=== PATIENT | female | born 1935 | race Caucasian/White ===

== ENCOUNTER 2016-08-31 16:42 | Inpatient (IN) | payer OTHER ==
[~2016-08-31] VITALS: Ht 162.6 cm; Wt 83.6 kg
[~2016-08-31 16:42] MED LIST: ASPIR-TRIN325 M1 PO; ASPIRIN81 M1 PO; HYDROCODON-ACE1 EAC2; LOPRESSOR12.5 MG PO; LOVASTATIN40 MG PO; METOPROLOL SUCC25 MG PO; PLAVIX75 MG PO; PRILOSEC20 MG PO; PROTONIX40 MG PO; SIMVASTATIN TAB 20M; Vicodin,Norco 5/325 PO; ZESTRIL,PRINIVI10 M1; ZESTRIL,PRINIVI10 MG PO; Zestril,Prinivil PO; Zocor PO
[2016-08-31 17:48] LABS: ADD MIUA? YES; BILIRUBIN NEGATIVE; BLOOD LARGE; COLOR YELLOW ((YELLOW)); GLUCOSE (STRIP) NEGATIVE; KETONES NEGATIVE; LEUKOCYTES TRACE; NITRITE NEGATIVE; PROTEIN (STRIP) 30; SPECIFIC GRAVITY 1.018 (1.000-1.030); UROBILINOGEN 0.2 MG/DL (0.2-1.0)
[2016-08-31 17:56] LABS: BACTERIA NONE SEEN /HPF; EPITHELIAL CELLS 1+ /HPF; MUCUS TRACE /LPF; RED BLOOD CELLS TNTC /HPF (0-5); UCUL ADDED? NO
[2016-08-31 18:05] LABS: HEMATOCRIT 40.4 % (36.0-46.0); MCH 29.5 PG (29.0-34.0); MCHC 31.4 G/DL (30.0-36.0); MEAN PLAT.VOLUME 9.6 uM^3 (9.5-12.4); PLATELET COUNT 263 K/uL (156-360); RBC DIS.WIDTH-CV 13.7 % (11.8-14.6); RBC DIS.WIDTH-SD 47.3 % (39-53)
[2016-08-31 18:18] LABS: CHLORIDE 107 mEq/L (99-109); POTASSIUM 5.1 mEq/L (3.7-5.4); SODIUM 141 mEq/L (136-147)
[2016-08-31 18:20] LABS: GLUCOSE 118 mg/dL (70-99)
[2016-08-31 18:21] LABS: ANION GAP 10 MEQ/L (2-14)
[2016-08-31 18:23] LABS: GFR ESTIMATE (CALCULATED) 22 mL/min/
[2016-08-31 18:24] LABS: UREA NITROGEN (BUN) 31 mg/dL (9-23)
[2016-08-31] MEDS ORDERED: HYDROCODON-ACE1 EAC9 PO (21:14)
[2016-08-31] MEDS ORDERED: NITROGLYCERIN0.4 MG SL (21:15)
[2016-08-31] MEDS ORDERED: GABAPENTIN300 MG PO (21:15)
[2016-08-31] MEDS ORDERED: LISINOPRIL20 MG PO (21:15)
[2016-08-31] MEDS ORDERED: GLUCOPHAGE500 MG PO (21:16)
[2016-08-31] MEDS ORDERED: PRAVASTATIN SOD80 MG PO (21:16)
[2016-08-31] MEDS ORDERED: B-125000 MC1 SL (21:17)
[2016-09-01] VITALS: BP 125/59
[2016-09-01 00:16] LABS: POINT-OF-CARE METER ID UU14174225
[2016-09-01 04:08] VITALS: BP 117/61
[2016-09-01 05:42] LABS: POINT-OF-CARE METER ID UU14188625
[2016-09-01 06:27] LABS: HEMATOCRIT 34.6 % (36.0-46.0); MCH 29.6 PG (29.0-34.0); MCHC 30.9 G/DL (30.0-36.0); MCV 95.6 FL (83-99); MEAN PLAT.VOLUME 9.8 uM^3 (9.5-12.4); PLATELET COUNT 213 K/uL (156-360); RBC DIS.WIDTH-CV 13.7 % (11.8-14.6); RBC DIS.WIDTH-SD 48.2 % (39-53); RED BLOOD COUNT 3.62 M/uL (3.80-5.20); WHITE BLOOD COUNT 6.2 K/uL (4.1-10.2)
[2016-09-01 06:44] LABS: ALKALINE PHOSPHATASE 48 IU/L (3-129); ANION GAP 6 MEQ/L (2-14); CHLORIDE 110 MEQ/L (99-109); GFR ESTIMATE (CALCULATED) 26 mL/min/; GLUCOSE 93 mg/dL (70-99); POTASSIUM 5.1 MEQ/L (3.7-5.4); SAMPLE HEMOLYSIS CHECK 0; SAMPLE ICTERIC CHECK 0; SAMPLE LIPEMIA CHECK 0; SODIUM 140 MEQ/L (136-147); TOTAL BILIRUBIN 0.2 MG/DL (0.0-1.0); UREA NITROGEN (BUN) 29 mg/dL (9-23)
[2016-09-01 07:28] VITALS: BP 134/60
[2016-09-01 10:57] VITALS: BP 159/75
[2016-09-01 15:48] LABS: POINT-OF-CARE METER ID UU13113675
[2016-09-01 20:52] VITALS: BP 161/71
[2016-09-01 22:42] LABS: POINT-OF-CARE METER ID UU14188625
[2016-09-01 23:41] VITALS: BP 155/68
[2016-09-02 03:23] VITALS: BP 131/60
[2016-09-02 06:41] LABS: HEMATOCRIT 37.8 % (36.0-46.0); MCH 28.8 PG (29.0-34.0); MCHC 30.7 G/DL (30.0-36.0); MCV 93.8 FL (83-99); MEAN PLAT.VOLUME 10.1 uM^3 (9.5-12.4); PLATELET COUNT 247 K/uL (156-360); RBC DIS.WIDTH-CV 13.5 % (11.8-14.6); RBC DIS.WIDTH-SD 46.5 % (39-53); RED BLOOD COUNT 4.03 M/uL (3.80-5.20); WHITE BLOOD COUNT 6.3 K/uL (4.1-10.2)
[2016-09-02 07:31] VITALS: BP 172/72
[2016-09-02 07:37] LABS: ANION GAP 9 MEQ/L (2-14); CHLORIDE 110 MEQ/L (99-109); GLUCOSE 103 mg/dL (70-99); POTASSIUM 4.5 MEQ/L (3.7-5.4); SAMPLE HEMOLYSIS CHECK 0; SAMPLE ICTERIC CHECK 0; SAMPLE LIPEMIA CHECK 0; SODIUM 142 MEQ/L (136-147); UREA NITROGEN (BUN) 19 mg/dL (9-23)
[2016-09-02 07:41] LABS: GFR ESTIMATE (CALCULATED) 51 mL/min/
[2016-09-02] MEDS ORDERED: CEFDINIR300 MG PO (10:17)
== END 2016-09-02 11:20 | disposition home or self-care (01) | DRG 690 ==
LOC: EXP 16:42 → EME 16:42 → EDOF 21:12 → 5SOUTH 21:12
PROVIDERS: Internal Medicine; Physician Assistant Medical; Urology
DX: N13.6 Pyonephrosis (principal); N17.9 Acute kidney failure, unspecified; I25.10 Atherosclerotic heart disease of native coronary artery without angina pectoris; J44.9 Chronic obstructive pulmonary disease, unspecified; K21.9 Gastro-esophageal reflux disease without esophagitis; E78.00 Pure hypercholesterolemia, unspecified; E66.01 Morbid (severe) obesity due to excess calories; Z68.31 Body mass index [BMI] 31.0-31.9, adult; I25.2 Old myocardial infarction; E11.9 Type 2 diabetes mellitus without complications; Z95.5 Presence of coronary angioplasty implant and graft; Z79.4 Long term (current) use of insulin
CPT/HCPCS: 74000; 74176; 80048; 80053; 81003; 82365 90; 82948; 85027; 99281; 99285; C1769; C1876; J0696; J1644; J1815; J1885; J2270; J3010; J7030; J7050; S0028

== ENCOUNTER → 2017-04-16 | Outpatient (CLI) | payer OTHER ==
[~2017-04-16] MED LIST changes: +B-125000 MC1 SL; +CEFDINIR300 MG PO; +GABAPENTIN300 MG PO; +GLUCOPHAGE500 MG PO; +HYDROCODON-ACE1 EAC9 PO; +LISINOPRIL20 MG PO; +NITROGLYCERIN0.4 MG SL; +PRAVASTATIN SOD80 MG PO
== END | disposition home or self-care (01) ==
DX: R26.2 Difficulty in walking, not elsewhere classified (principal); M25.561 Pain in right knee; M25.661 Stiffness of right knee, not elsewhere classified; M62.81 Muscle weakness (generalized); Z74.1 Need for assistance with personal care; M17.11 Unilateral primary osteoarthritis, right knee
CPT/HCPCS: 97150 GO; 97161 GP; 97165 GO; 97530 GP; G8978 GP; G8979 GP; G8980 GP; G8987 GO; G8988 GO; G8989 GO

== ENCOUNTER 2017-05-06 22:15 | Inpatient (IN) | payer OTHER ==
[~2017-05-06] VITALS: Ht 162.6 cm; Wt 85.9 kg
[~2017-05-06 22:15] MED LIST changes: +ASPIR 8181 M1 PO; +NEURONTIN400 MG PO; +PRAVACHOL80 MG PO; +ZESTRIL20 MG PO
[2017-05-07 08:07] VITALS: BP 128/67
[2017-05-07 18:15] VITALS: BP 138/63
[2017-05-07 20:06] VITALS: BP 140/63
[2017-05-07 23:09] VITALS: BP 123/60
[2017-05-08 05:05] VITALS: BP 129/61
[2017-05-08 07:57] LABS: HEMATOCRIT 37.3 % (36.0-46.0); MCV 96.1 FL (83-99)
[2017-05-08 08:06] VITALS: BP 137/63
[2017-05-08 08:29] LABS: HEMOGLOBIN 11.5 G/DL (11.9-15.5)
[2017-05-08 08:38] LABS: CHLORIDE 105 MEQ/L (99-109); CREATININE 0.7 MG/DL (0.6-1.3); GFR ESTIMATE (CALCULATED) > 59 mL/min/; GLUCOSE 129 mg/dL (70-99); POTASSIUM 4.4 MEQ/L (3.7-5.4); SODIUM 137 MEQ/L (136-147); UREA NITROGEN (BUN) 12 mg/dL (9-23)
[2017-05-08 12:19] VITALS: BP 148/68
[2017-05-08 16:06] VITALS: BP 179/78
[2017-05-08 23:37] VITALS: BP 159/72
[2017-05-09 05:30] LABS: HEMATOCRIT 32.2 % (36.0-46.0); HEMOGLOBIN 10.4 G/DL (11.9-15.5)
[2017-05-09 07:50] VITALS: BP 161/70
[2017-05-09] MEDS ORDERED: HYDROMORPHONE HC2 MG PO (08:58)
[2017-05-09] MEDS ORDERED: ELIQUIS2.5 MG PO (08:58)
[2017-05-09] MEDS ORDERED: SENNA PLUS TAB1 EACH PO (08:58)
[2017-05-09] MEDS ORDERED: Salonpas 4% Patch TD (08:58)
== END 2017-05-09 16:47 | disposition home or self-care (01) | DRG 470 ==
LOC: ENRESERV 22:15 → 3EAST 05-07 06:39 → 2SOUTH 05-07 06:39 → ENRESERV 05-07 15:30 → 3EAST 05-07 17:41
PROVIDERS: Orthopaedic Surgery
PROC: 0SRC0J9 Replacement of Right Knee Joint with Synthetic Substitute, Cemented, Open Approach (ICD-10-PCS; principal; 2017-05-07)
DX: M17.11 Unilateral primary osteoarthritis, right knee (principal); I10 Essential (primary) hypertension; Z68.33 Body mass index [BMI] 33.0-33.9, adult; E78.00 Pure hypercholesterolemia, unspecified; Z95.5 Presence of coronary angioplasty implant and graft
CPT/HCPCS: 36415; 80048; 81003; 82948; 85014; 85018; 85025; 85610 GA; 86850; 86900; 86901; 87641; 94799; C1713; J0131; J0690; J1885; J2250; J2405; J7050; J7120

== ENCOUNTER 2017-05-13 11:24 | Emergency (ER) | payer OTHER ==
[~2017-05-13] VITALS: Ht 162.6 cm; Wt 91.8 kg
[~2017-05-13 11:24] MED LIST changes: +ELIQUIS2.5 MG PO; +HYDROMORPHONE HC2 MG PO; +SENNA PLUS TAB1 EACH PO; +Salonpas 4% Patch TD
[2017-05-13] MEDS ORDERED: DOXYCYCLINE HY100 MG PO (15:14)
[2017-05-13 15:52] VITALS: BP 138/62
== END 2017-05-13 15:54 | disposition home or self-care (01) ==
LOC: EME 11:24
DX: M25.561 Pain in right knee (principal); Z96.651 Presence of right artificial knee joint; I25.2 Old myocardial infarction; Z87.442 Personal history of urinary calculi; K21.9 Gastro-esophageal reflux disease without esophagitis; E78.5 Hyperlipidemia, unspecified; E11.9 Type 2 diabetes mellitus without complications; I10 Essential (primary) hypertension; Z95.5 Presence of coronary angioplasty implant and graft; Z88.0 Allergy status to penicillin; Z88.5 Allergy status to narcotic agent; Z91.040 Latex allergy status; F17.200 Nicotine dependence, unspecified, uncomplicated
CPT/HCPCS: 73564; 93971; 99281; 99285

== ENCOUNTER → 2017-07-25 | Outpatient (CLI) | payer OTHER ==
[~2017-07-25] MED LIST changes: +DOXYCYCLINE HY100 MG PO
== END | disposition home or self-care (01) ==
LOC: RAD 07-18 11:00
DX: R10.32 Left lower quadrant pain (principal)
CPT/HCPCS: 74177